=== PATIENT | female | born 1980 | race Caucasian/White ===

== ENCOUNTER 2018-09-24 15:08 | Emergency (ER) | payer BC ==
[2018-09-24 16:24] LABS: BASO % 0.5 % (0-6); EOS % 1.2 % (0-6); GRAN % 66.5 % (47-80); HEMOGLOBIN 14.4 gm/dl (11.6-16.0); MEAN CELL VOLUME 86.3 fl (81-97); MEAN CORPUSCULAR HEMOGLOBIN 28.9 pg (27-33); MEAN CORPUSCULAR HGB CONC 33.5 g/dl (32-36); MEAN PLATELET VOLUME 11.9 fl (7.4-10.4); MONO % 8.8 % (0-9); PLATELET COUNT 212 K/uL (130-400); RED BLOOD COUNT 4.98 M/uL (3.80-5.40); RED CELL DISTRIBUTION WIDTH 13.2 % (11.5-14.5); WHITE BLOOD COUNT W/O DIFF 6.6 K/uL (4.2-12.2)
[2018-09-24 16:33] LABS: BLOOD UREA NITROGEN 10 mg/dL (6-20); CREATININE 0.6 mg/dL (0.5-0.9); EST GLOMERULAR FILTRATION RATE > 60 mL/min
[2018-09-24 16:34] LABS: TOTAL PROTEIN 8.3 g/dL (6.6-8.7)
[2018-09-24 16:36] LABS: GLUCOSE,RANDOM 86 mg/dL (74-109)
[2018-09-24 16:39] LABS: ALB/GLOB RATIO 1.3 (1.1-1.8); ALBUMIN 4.7 g/dL (4.0-5.0); ALKALINE PHOSPHATASE 83 U/L (35-104); ALT/SGPT 14 U/L (<33); AST/SGOT 15 U/L (10.0-35.0)
[2018-09-24 17:07] LABS: URINE BILIRUBIN NEGATIVE (NEGATIVE); URINE BLOOD TRACE-I (NEGATIVE); URINE COLOR YELLOW; URINE GLUCOSE (UA) NEGATIVE (NEGATIVE); URINE KETONE NEGATIVE (NEGATIVE); URINE NITRITE NEGATIVE (NEGATIVE); URINE PROTEIN NEGATIVE (NEGATIVE); URINE UROBILINOGEN 0.2 E.U./dL (0.20 - 1.00)
[2018-09-24 17:11] LABS: URINE APPEARANCE SL CLOUDY; URINE LEUKOCYTE ESTERASE TRACE (NEGATIVE)
[2018-09-24 17:13] LABS: URINE MUCUS LIGHT
--- NOTE | 2018-09-24 17:34 | Emergency Department Record ---
History of Present Illness - General Chief Complaint: Abdominal Pain Stated Complaint: LT SIDE PAIN Time Seen by Provider: 09/24/18 16:09 Source: Patient Mode of Arrival: Ambulatory Limitations: No limitations - History of Present Illness Initial Comments: pt has had llq ap for 2 days w n/d/c. she went to [facility] to urgent care and was told that she has diverticulitis and was given abx. she had no labs and no ct. she was told to go to an emergency dept if she wanted affirmation MD Complaint: Abdominal pain Onset/Timin -: Days(s) Location: LLQ Radiation: Back Migration to: No migration Severity: Mild Severity scale (1-10): 3 Quality: Aching, Cramping Consistency: Constant Improves With: Nothing Worsens With: Eating Associated Symptoms: Constipation, Diarrhea, Nausea - Related Data LMP (females 10-50): Unknown Patient : No Home Medications Medication Instructions Recorded Confirmed Last Taken Sertraline HCl [Zoloft] 100 mg PO DAILY 09/24/18 09/24/18 Unknown Venlafaxine HCl [Venlafaxine HCl 75 mg PO DAILY 09/24/18 09/24/18 Unknown ER] Allergies Allergy/AdvReac Type Severity Reaction Status Date / Time No Known Drug Allergies Allergy Verified 09/24/18 15:27 Travel Screening - Travel/Exposure Within Last 30 Days Have you traveled within the last 30 days?: No Review of Systems Reviewed: No additional complaints except as noted below Constitutional: Reports: As per HPI. Denies: Chills, Fever, Malaise, Night sweats, Weakness, Weight change Eyes: Reports: As per HPI. Denies: Eye discharge, Eye pain, Photophobia, Vision change ENT: Reports: As per HPI. Denies: Congestion, Dental pain, Ear pain, Epistaxis , Hearing loss, Throat pain Respiratory: Reports: As per HPI. Denies: Cough, Dyspnea, Hemoptysis, Stridor, Wheezes Cardiovascular: Reports: As per HPI. Denies: Arrhythmia, Chest pain, Dyspnea on exertion, Edema, Murmurs, Orthopnea, Palpitations, Paroxysmal nocturnal dyspnea, Rheumatic Fever, Syncope Endocrine: Reports: As per HPI. Denies: Fatigue, Heat or cold intolerance, Polydipsia, Polyuria Gastrointestinal: Reports: As per HPI, Abdominal pain, Constipation, Diarrhea, Nausea. Denies: Hematemesis, Hematochezia, Melena, Vomiting Genitourinary: Reports: As per HPI. Denies: Abnormal menses, Discharge, Dyspareunia, Dysuria, Frequency, Hematuria, Incontinence, Retention, Urgency Musculoskeletal: Reports: As per HPI. Denies: Arthralgia, Back pain, Gout, Joint swelling, Myalgia, Neck pain Skin: Reports: As per HPI. Denies: Bruising, Change in color, Change in hair/ nails, Lesions, Pruritus, Rash Neurological: Reports: As per HPI. Denies: Abnormal gait, Confusion, Headache, Numbness, Paresthesias, Seizure, Tingling, Tremors, Vertigo, Weakness Psychiatric: Reports: As per HPI. Denies: Anxiety, Auditory hallucinations, Depression, Homicidal thoughts, Suicidal thoughts, Visual hallucinations Hematological/Lymphatic: Reports: As per HPI. Denies: Anemia, Blood Clots, Easy bleeding, Easy bruising, Swollen glands Past Medical History - SOCIAL HISTORY Smoking Status: Never smoker Alcohol Use: Rare Drug Use: None - RESPIRATORY Hx Respiratory Disorders: No - CARDIOVASCULAR Hx Cardio Disorders: No - NEURO Hx Neuro Disorders: No - GI Hx GI Disorders: No - Hx Genitourinary Disorders: No Comment:: endometriosis - ENDOCRINE Hx Endocrine Disorders: No - MUSCULOSKELETAL Hx Musculoskeletal Disorders: No - PSYCH Hx Psych Problems: Yes Hx Anxiety: Yes Hx Depression: Yes - HEMATOLOGY/ONCOLOGY Hx Hematology/Oncology Disorders: No Family Medical History Any Significant Family History?: No Physical Exam - General General Appearance: Alert, Oriented x3, Cooperative, Mild distress - Head Head exam: Normal inspection - Eye Eye exam: Normal appearance, PERRL, EOMI Pupils: Normal accommodation - ENT ENT exam: Normal exam, Mucous membranes moist, Normal external ear exam, Normal orophraynx Ear exam: Normal external inspection. negative: External canal tenderness Nasal Exam: Normal inspection. negative: Discharge, Sinus tenderness Mouth exam: Normal external inspection, Tongue normal Teeth exam: Normal inspection. negative: Dental caries Throat exam: Normal inspection. negative: Tonsillar erythema, Tonsillar exudate - Neck Neck exam: Normal inspection, Full ROM. negative: Tenderness - Respiratory Respiratory exam: Normal lung sounds bilaterally. negative: Respiratory distress - Cardiovascular Cardiovascular Exam: Regular rate, Normal rhythm, Normal heart sounds - GI/Abdominal GI/Abdominal exam: Soft, Normal bowel sounds, Tenderness (llq) - Rectal Rectal exam: Deferred - exam: Deferred - Extremities Extremities exam: Normal inspection, Full ROM, Normal capillary refill. negative: Tenderness - Back Back exam: Reports: Normal inspection, Full ROM. Denies: Muscle spasm, Rash noted, Tenderness - Neurological Neurological exam: Alert, CN II-XII intact, Normal gait, Oriented X3 - Psychiatric Psychiatric exam: Normal affect, Normal mood - Skin Skin exam: Dry, Intact, Normal color, Warm Course Vital Signs 09/24/18 09/24/18 15:20 17:06 Temperature 97.7 F Pulse Rate 78 Pulse Rate [ 73 Pulse Ox Probe] Respiratory 18 18 Rate Blood Pressure 125/88 Blood Pressure 117/80 [Left Arm] Pulse Ox 95 97 - Reevaluation(s) Reevaluation #1: 09/24/18 17:59 ct is neg Medical Decision Making - Lab Data Result diagrams: 09/24/18 15:30 09/24/18 15:30 Lab Results 09/24/18 09/24/18 09/24/18 Range/Units 15:30 15:30 17:00 WBC 6.6 (4.2-12.2) K/uL RBC 4.98 (3.80-5.40) M/uL Hgb 14.4 (11.6-16.0) gm/dl Hct 43.0 (35.0-47.0) % MCV 86.3 (81-97) fl MCH 28.9 (27-33) pg MCHC 33.5 (32-36) g/dl RDW 13.2 (11.5-14.5) % Plt Count 212 (130-400) K/uL MPV 11.9 H (7.4-10.4) fl Gran % 66.5 (47-80) % Lymphocytes % 23.0 (16-45) % Monocytes % 8.8 (0-9) % Eosinophils % 1.2 (0-6) % Basophils % 0.5 (0-6) % Sodium 137 (136-145) mmol/L Potassium 3.4 (3.4-4.5) mmol/L Chloride 98 (98-107) mmol/L Carbon Dioxide 25.0 (22-29) mmol/L Anion Gap 14.0 (7-16) BUN 10 (6-20) mg/dL Creatinine 0.6 (0.5-0.9) mg/dL Estimated GFR > 60 mL/min Random Glucose 86 (74-109) mg/dL Calcium 9.5 (8.6-10.0) mg/dL Total Bilirubin 0.30 (0.2-1.0) mg/dL AST 15 (10.0-35.0) U/L ALT 14 (<33) U/L Alkaline Phosphatase 83 (35-104) U/L Total Protein 8.3 (6.6-8.7) g/dL Albumin 4.7 (4.0-5.0) g/dL Globulin 3.6 (1.4-4.8) gm/dL Albumin/Globulin Ratio 1.3 (1.1-1.8) Urine Color Yellow Urine Appearance Sl cloudy Urine pH 5.5 (5.0-8.0) Ur Specific [place] 1.010 (1.002-1.030) Urine Protein Negative (NEGATIVE) Urine Glucose (UA) Negative (NEGATIVE) Urine Ketones Negative (NEGATIVE) Urine Blood Trace-i (NEGATIVE) Urine Nitrite Negative (NEGATIVE) Urine Bilirubin Negative (NEGATIVE) Urine Urobilinogen 0.2 (0.20 - 1.00) E.U./dL Ur Leukocyte Esterase Trace H (NEGATIVE) Urine RBC 3 - 6 (NONE SEEN) Urine WBC 3 - 5 (0-2/hpf) Ur Epithelial Cells 10 - 15 (FEW) Urine Mucus Light Disposition Disposition: Discharge Clinical Impression: LLQ abdominal pain Disposition: Home, Self-Care Condition: (1) Good Instructions: Abdominal Pain (ED) Additional Instructions: follow up with family doctor. return sooner if worse. if pain continues be rechecked Quality - Quality Measures Quality Measures: N/A - Blood Pressure Screening Does Patient Have Any of the Following: No Blood Pressure Classification: Pre-Hypertensive BP Reading Systolic Measurement: 125 Diastolic Measurement: 88 Screening for High Blood Pressure: < Pre-Hypertensive BP, F/U Documented > [ G8950] Pre-Hypertensive Follow-up Interventions: Follow-up with rescreen every year.
[2018-09-24] MEDS: KETOROLAC 30 MG/ML VIAL IVP ONE (18:18)
[2018-09-24] MEDS: 0.9 % SODIUM CHLORIDE 1,000 ML BAG IV ONE (18:19)
[2018-09-24] MEDS: ONDANSETRON HCL IV 4 MG/2 ML VIAL IV ONE (18:19)
== END 2018-09-24 18:23 | disposition home or self-care (01) ==
LOC: ER 15:08
DX: R10.32 Left lower quadrant pain (principal); R19.7 Diarrhea, unspecified; R11.0 Nausea
CPT/HCPCS: 74176; 80053; 81001; 85025; 99284; J7030

== ENCOUNTER 2018-10-27 15:01 | Emergency (ER) | payer BC ==
[2018-10-27] MEDS ORDERED: KETOROLAC 30 MG/ML VIAL IVP ONE (15:22)
[2018-10-27] MEDS ORDERED: 0.9 % SODIUM CHLORIDE 1,000 ML BAG IV ONE (15:22)
[2018-10-27] MEDS ORDERED: ONDANSETRON HCL IV 4 MG/2 ML VIAL IVP ONE ×2 (15:22→17:24)
--- NOTE | 2018-10-27 15:27 | Emergency Department Record ---
History of Present Illness - General Chief Complaint: Abdominal Pain Stated Complaint: LT SIDE PAIN Time Seen by Provider: 10/27/18 15:13 Source: Patient, Family Mode of Arrival: Ambulatory Limitations: No limitations - History of Present Illness Initial Comments: 37 yo female presents with left sided abdominal pain that has been coming and going for one month. She was seen in a [facility] and given the clinical diagnosis of diverticulitis. She was then seen in the ED and had a negative CT scan for diverticulitis. No history of GI disease in the past. She has some feeling constipation with hard firm stools but she does continue to have stools. She has tried Miralax with mild improvement. No fevers. No rash. No dysuria. MD Complaint: Abdominal pain Onset/Timin -: Month(s) (1) Location: LUQ Radiation: LUQ Migration to: LUQ Severity: Moderate Quality: Aching, Cramping Improves With: Nothing Worsens With: Nothing Associated Symptoms: Nausea - Related Data LMP (females 10-50): Unknown Home Medications Medication Instructions Recorded Confirmed Last Taken Multivitamin [Multiple Vitamins] 1 each PO DAILY 10/27/18 10/27/18 1 Day Ago ~10/26/18 Previous Rx's Medication Instructions Recorded Docusate Sodium [Colace] 100 mg PO BID #20 cap 10/27/18 Allergies Allergy/AdvReac Type Severity Reaction Status Date / Time No Known Drug Allergies Allergy Verified 10/27/18 15:20 Travel Screening - Travel/Exposure Within Last 30 Days Have you traveled within the last 30 days?: No - Travel/Exposure Within Last Year Have you traveled outside the [place] in the last year?: No - Additonal Travel Details Have you been exposed to anyone with a communicable illness?: No - Travel Symptoms Symptom Screening: None Review of Systems Constitutional: Denies: Chills, Fever, Malaise, Weakness Eyes: Denies: Eye discharge ENT: Denies: Congestion, Throat pain Respiratory: Denies: Cough, Dyspnea, Hemoptysis, Stridor, Wheezes Cardiovascular: Denies: Chest pain, Palpitations, Syncope Endocrine: Denies: Fatigue Gastrointestinal: Reports: Abdominal pain, Constipation, Nausea. Denies: Diarrhea, Hematemesis, Hematochezia, Vomiting Genitourinary: Denies: Dysuria, Urgency Musculoskeletal: Denies: Arthralgia, Back pain, Joint swelling, Myalgia Skin: Denies: Bruising, Change in color, Rash Neurological: Denies: Confusion, Numbness, Weakness Psychiatric: Denies: Anxiety Hematological/Lymphatic: Denies: Easy bleeding, Easy bruising Past Medical History - SOCIAL HISTORY Smoking Status: Never smoker Alcohol Use: None Drug Use: None - RESPIRATORY Hx Respiratory Disorders: No - CARDIOVASCULAR Hx Cardio Disorders: No - NEURO Hx Neuro Disorders: No - GI Hx GI Disorders: No - Hx Genitourinary Disorders: Yes Comment:: endometriosis - ENDOCRINE Hx Endocrine Disorders: No - MUSCULOSKELETAL Hx Musculoskeletal Disorders: No - PSYCH Hx Psych Problems: Yes Hx Anxiety: Yes Hx Depression: Yes - HEMATOLOGY/ONCOLOGY Hx Hematology/Oncology Disorders: No Family Medical History Any Significant Family History?: Yes Family Hx Comment (NOT TO BE USED IN PLACE OF ITEMS BELOW): none known Physical Exam - General General Appearance: Alert, Oriented x3, Cooperative, No acute distress Limitations: No limitations - Head Head exam: Atraumatic, Normal inspection - Eye Eye exam: Normal appearance. negative: Conjunctival injection, Scleral icterus - ENT ENT exam: Normal exam Ear exam: Normal external inspection Nasal Exam: Normal inspection Mouth exam: Normal external inspection - Neck Neck exam: Normal inspection - Respiratory Respiratory exam: Normal lung sounds bilaterally. negative: Respiratory distress - Cardiovascular Cardiovascular Exam: Regular rate, Normal rhythm, Normal heart sounds - GI/Abdominal GI/Abdominal exam: Soft, Normal bowel sounds, Tenderness (mild left lateral tenderness but very soft). negative: Diminished bowel sounds, Distended, Guarding, Hyperactive bowel sounds, Hypoactive bowel sounds, Rebound, Rigid - Rectal Rectal exam: Deferred - exam: Deferred - Extremities Extremities exam: Normal inspection. negative: Pedal edema, Tenderness - Back Back exam: Denies: CVA tenderness (R), CVA tenderness (L) - Neurological Neurological exam: Alert, Normal gait, Oriented X3 - Psychiatric Psychiatric exam: Normal affect, Normal mood - Skin Skin exam: Dry, Intact, Normal color, Warm Course Vital Signs 10/27/18 15:08 Temperature 97.7 F Pulse Rate 84 Respiratory 18 Rate Blood Pressure 119/86 Pulse Ox 95 - Reevaluation(s) Reevaluation #1: The labs were reviewed. No acute changes on the CBC or CMP. The prior CT was negative at that time for acute process. 10/27/18 16:15 10/27/18 17:51 The XR demonstrates moderate amount of stool throughout the colon 10/27/18 19:25 Given her clinical history of no signs of infection, constipation recently with first hard stools, the XR findings, I believe this is the most likely cause. I do not recommend another CT scan with her normal labs, no fever, no signs of infection. We discussed constipation at length. TSH was added as well. We discussed home care, close follow up with her doctor, GI referral if not improving, and reasons to return. Medical Decision Making - Lab Data Result diagrams: 10/27/18 15:30 10/27/18 15:30 Disposition Disposition: Discharge Clinical Impression: Constipation, Abdominal pain, left upper quadrant Disposition: Home, Self-Care Condition: (1) Good Instructions: Constipation (ED), Abdominal Pain (ED) Additional Instructions: Call your doctor for the next available follow up appointment Return to the ER for a recheck if worse, any new concerns or questions Take the prescriptions provided as directed Review this ER visit and the tests performed with your family doctor Prescriptions: Docusate Sodium [Colace] 100 mg PO BID #20 cap Forms: Patient Portal Access Time of Disposition: 17:53 Quality - Quality Measures Quality Measures: N/A - Blood Pressure Screening Does Patient Have Any of the Following: No Blood Pressure Classification: Pre-Hypertensive BP Reading Systolic Measurement: 119 Diastolic Measurement: 86 Screening for High Blood Pressure: < Pre-Hypertensive BP, F/U Documented > [ G8950] Pre-Hypertensive Follow-up Interventions: Referral to alternative/primary care provider.
[2018-10-27 15:45] LABS: BASO % 0.4 % (0-6); GRAN % 69.4 % (47-80); HEMATOCRIT 41.4 % (35.0-47.0); HEMOGLOBIN 13.8 gm/dl (11.6-16.0); LYMPH % 21.8 % (16-45); MEAN CELL VOLUME 87.7 fl (81-97); MEAN CORPUSCULAR HEMOGLOBIN 29.2 pg (27-33); MEAN CORPUSCULAR HGB CONC 33.3 g/dl (32-36); MEAN PLATELET VOLUME 11.7 fl (7.4-10.4); MONO % 7.4 % (0-9); PLATELET COUNT 231 K/uL (130-400); RED BLOOD COUNT 4.72 M/uL (3.80-5.40); RED CELL DISTRIBUTION WIDTH 13.3 % (11.5-14.5); WHITE BLOOD COUNT W/O DIFF 7.9 K/uL (4.2-12.2)
[2018-10-27 15:58] LABS: BLOOD UREA NITROGEN 13 mg/dL (6-20); CREATININE 1.1 mg/dL (0.5-0.9); EST GLOMERULAR FILTRATION RATE > 60 mL/min
[2018-10-27 15:59] LABS: LIPASE 22 U/L (13-60); TOTAL PROTEIN 7.7 g/dL (6.6-8.7)
[2018-10-27 16:01] LABS: GLUCOSE,RANDOM 97 mg/dL (74-109)
[2018-10-27 16:03] LABS: ALB/GLOB RATIO 1.6 (1.1-1.8); ALBUMIN 4.7 g/dL (4.0-5.0); ALKALINE PHOSPHATASE 77 U/L (35-104); ALT/SGPT 13 U/L (<33); AST/SGOT 14 U/L (10.0-35.0)
[2018-10-27 16:25] LABS: URINE APPEARANCE CLEAR; URINE BILIRUBIN NEGATIVE (NEGATIVE); URINE BLOOD NEGATIVE (NEGATIVE); URINE COLOR YELLOW; URINE GLUCOSE (UA) NEGATIVE (NEGATIVE); URINE KETONE NEGATIVE (NEGATIVE); URINE LEUKOCYTE ESTERASE TRACE (NEGATIVE); URINE NITRITE NEGATIVE (NEGATIVE); URINE PROTEIN NEGATIVE (NEGATIVE); URINE UROBILINOGEN 0.2 E.U./dL (0.20 - 1.00)
[2018-10-27 16:31] LABS: URINE RBC NONE SEEN (NONE SEEN); URINE WBC 0 - 2 (0-2/hpf)
[2018-10-27 16:32] LABS: HCG,QUALITATIVE URINE NEGATIVE (NEGATIVE)
[2018-10-27] MEDS ORDERED: MORPHINE SULFATE 10 MG/ML VIAL IVP ONE (17:24)
--- NOTE | 2018-10-30 10:28 | RADIOLOGY REPORT ---
EXAM: ABDOMEN, ONE VIEW HISTORY: LEFT SIDED ABDOMINAL PAIN FOR ONE MONTH. ENDOMETRIOSIS HISTORY. TECHNIQUE: Two AP supine views of the abdomen were obtained. Comparison: CT abdomen and pelvis without contrast dated 09/24/18. FINDINGS: Gas and stool are noted throughout a nondilated colon to the level of the rectum. Stool volume is moderate. No small bowel dilatation seen. No new mass, organomegaly, or suspicious calcification. An intrauterine contraceptive device is in place projecting at the level of the midline central pelvis. The osseous structures are intact. IMPRESSION: 1. NO BOWEL DILATATION, MASS NOR SUSPICIOUS CALCIFICATION. 2. MODERATE VOLUME OF STOOL THROUGHOUT THE COLON. 3. INTRAUTERINE CONTRACEPTIVE DEVICE IN PLACE. JOB NUMBER: [id number] MTDD
== END 2018-10-27 18:53 | disposition home or self-care (01) ==
LOC: ER 15:01
DX: K59.00 Constipation, unspecified (principal); R10.12 Left upper quadrant pain; R11.0 Nausea
CPT/HCPCS: 74018; 80053; 81001; 81025; 83690; 84443; 85025; 96374; 96375; 96376; 99283; 99284; J1885; J2270; J2405; J7030

== ENCOUNTER 2019-08-26 10:52 | Emergency (ER) | payer BC ==
[2019-08-26] MEDS ORDERED: 0.9 % SODIUM CHLORIDE 1,000 ML BAG IV ONE ×2 (11:46→13:10)
[2019-08-26] MEDS ORDERED: PROMETHAZINE HCL 12.5 MG in 0.9 % SODIUM CHLORIDE 100ML 100 ML IVPB ONE (11:47)
[2019-08-26 12:16] LABS: ABSOLUTE NEUTROPHIL COUNT 11.64; HEMATOCRIT 44.9 % (35.0-47.0); HEMOGLOBIN 14.5 gm/dl (11.6-16.0); MEAN CELL VOLUME 86.2 fl (81-97); MEAN CORPUSCULAR HEMOGLOBIN 27.8 pg (27-33); MEAN CORPUSCULAR HGB CONC 32.3 g/dl (32-36); MEAN PLATELET VOLUME 11.8 fl (7.4-10.4); PLATELET COUNT 202 K/uL (130-400); RED BLOOD COUNT 5.21 M/uL (3.80-5.40); RED CELL DISTRIBUTION WIDTH 13.5 % (11.5-14.5); WHITE BLOOD COUNT W/O DIFF 12.5 K/uL (4.2-12.2)
[2019-08-26 12:28] LABS: PLATELET ESTIMATE NORMAL (NORMAL)
[2019-08-26 12:32] LABS: BLOOD UREA NITROGEN 14 mg/dL (6-20); CREATININE 0.6 mg/dL (0.5-0.9); EST GLOMERULAR FILTRATION RATE > 60 mL/min
[2019-08-26 12:33] LABS: LIPASE 19 U/L (13-60); TOTAL PROTEIN 8.3 g/dL (6.6-8.7)
[2019-08-26 12:34] LABS: GLUCOSE,RANDOM 123 mg/dL (74-109)
[2019-08-26 12:37] LABS: ALB/GLOB RATIO 1.2 (1.1-1.8); ALBUMIN 4.5 g/dL (4.0-5.0); ALT/SGPT 16 U/L (<33); AST/SGOT 16 U/L (10.0-35.0)
[2019-08-26 12:38] LABS: ALKALINE PHOSPHATASE 80 U/L (35-104)
--- NOTE | 2019-08-26 13:14 | Emergency Department Record ---
History of Present Illness - General Chief complaint: Nausea, Vomiting, Diarrhea Stated complaint: VOMITING/DIARRHEA Time Seen by Provider: 08/26/19 11:10 Source: Patient Mode of Arrival: Ambulatory Limitations: No limitations - History of Present Illness Initial comments: pt has been vomiting and had diarrhea since last night. she had frozen chicken tenders for meal before she got sick complaint: Diarrhea, Nausea, Vomiting Onset/Timin -: Hour(s) Description of Vomiting: Watery Associated Abdominal Pain: Yes Location: Diffuse Quality: Cramping Consistency: Intermittent Improves with: Bowel movement Associated Symptoms: Nausea/vomiting - Related Data Previous Rx's Medication Instructions Recorded Promethazine HCl [Phenergan] 25 mg PO Q8HR #10 tablet 08/26/19 Allergies Allergy/AdvReac Type Severity Reaction Status Date / Time adhesive AdvReac RASH Verified 08/26/19 11:22 Travel/Exposure Screening - Travel/Exposure Within Last 30 Days Have you traveled within the last 30 days?: No - Travel/Exposure Within Last Year Have you traveled outside the [place] in the last year?: No - Additonal Travel/Exposure Details Have you been exposed to anyone with a communicable illness?: No - Travel Symptoms Symptom Screening: Fatigue, Diarrhea, Vomiting Review of Systems Constitutional: Reports: Weakness. Denies: Chills, Fever, Malaise, Night sweats Eyes: Reports: Vision change. Denies: Eye discharge, Eye pain, Photophobia ENT: Denies: Congestion, Dental pain, Ear pain, Epistaxis, Hearing loss, Throat pain Respiratory: Denies: Cough, Dyspnea, Hemoptysis, Stridor, Wheezes Cardiovascular: Denies: Arrhythmia, Chest pain Endocrine: Reports: Fatigue. Denies: Heat or cold intolerance, Polydipsia, Polyuria Gastrointestinal: Reports: Abdominal pain, Diarrhea, Nausea, Vomiting. Denies: Constipation, Hematochezia, Melena Musculoskeletal: Denies: Arthralgia, Back pain, Gout Skin: Denies: Bruising, Change in color, Change in hair/nails Neurological: Reports: Weakness. Denies: Abnormal gait, Confusion, Headache, Numbness, Paresthesias, Seizure, Tingling, Tremors Psychiatric: Denies: Anxiety, Auditory hallucinations, Visual hallucinations Hematological/Lymphatic: Denies: Anemia, Blood Clots, Easy bleeding, Easy bruising Past Medical History - SOCIAL HISTORY Smoking Status: Never smoker Alcohol Use: Rare Drug Use: None - RESPIRATORY Hx Respiratory Disorders: No - CARDIOVASCULAR Hx Cardio Disorders: No - NEURO Hx Neuro Disorders: No - GI Hx GI Disorders: No - Hx Genitourinary Disorders: Yes Comment:: endometriosis - ENDOCRINE Hx Endocrine Disorders: No - MUSCULOSKELETAL Hx Musculoskeletal Disorders: No - PSYCH Hx Psych Problems: Yes Hx Anxiety: Yes Hx Depression: Yes - HEMATOLOGY/ONCOLOGY Hx Hematology/Oncology Disorders: No Family Medical History Any Significant Family History?: No Family Hx Comment (NOT TO BE USED IN PLACE OF ITEMS BELOW): none known Physical Exam - General General Appearance: Alert, Oriented x3, Cooperative, Mild distress - Head Head exam: Normal inspection - Eye Eye exam: Normal appearance, PERRL, EOMI Pupils: Normal accommodation - ENT ENT exam: Normal exam, Mucous membranes dry, Normal external ear exam, Normal orophraynx Ear exam: Normal external inspection. negative: External canal tenderness Nasal Exam: Normal inspection. negative: Discharge, Sinus tenderness Mouth exam: Normal external inspection, Tongue normal Teeth exam: Normal inspection. negative: Dental caries Throat exam: Normal inspection. negative: Tonsillar erythema, Tonsillar exudate - Neck Neck exam: Normal inspection, Full ROM. negative: Tenderness - Respiratory Respiratory exam: Normal lung sounds bilaterally. negative: Respiratory distress - Cardiovascular Cardiovascular Exam: Normal rhythm, Normal heart sounds, Tachycardia - GI/Abdominal GI/Abdominal exam: Soft, Normal bowel sounds, Tenderness - Rectal Rectal exam: Deferred - exam: Deferred - Extremities Extremities exam: Normal inspection, Full ROM, Normal capillary refill. negative: Tenderness - Back Back exam: Reports: Normal inspection, Full ROM. Denies: Muscle spasm, Rash noted, Tenderness - Neurological Neurological exam: Alert, CN II-XII intact, Normal gait, Oriented X3, Reflexes normal - Psychiatric Psychiatric exam: Normal affect, Normal mood - Skin Skin exam: Dry, Intact, Normal color, Warm Course Vital Signs 08/26/19 11:12 Temperature 97.9 F Pulse Rate 103 H Respiratory 20 Rate Blood Pressure 124/75 Pulse Ox 99 - Reevaluation(s) Reevaluation #1: 08/26/19 14:08 pt feels much better Reevaluation #2: 08/26/19 14:09 able to keep down ice Medical Decision Making - Lab Data Result diagrams: 08/26/19 12:06 08/26/19 12:06 Lab Results 08/26/19 08/26/19 Range/Units 12:06 12:06 WBC 12.5 H (4.2-12.2) K/uL RBC 5.21 (3.80-5.40) M/uL Hgb 14.5 (11.6-16.0) gm/dl Hct 44.9 (35.0-47.0) % MCV 86.2 (81-97) fl MCH 27.8 (27-33) pg MCHC 32.3 (32-36) g/dl RDW 13.5 (11.5-14.5) % Plt Count 202 (130-400) K/uL MPV 11.8 H (7.4-10.4) fl Neutrophils % 88.0 H (47-80) % Band Neutrophils % 3.0 (0-5) % Eosinophils % Not Reportable Basophils % Not Reportable Absolute Neutrophils 11.64 Lymphocytes 8.0 L (16-45) % Monocytes 1.0 (0-9) % Platelet Estimate Normal (NORMAL) RBC Morphology Normal Sodium 138 (136-145) mmol/L Potassium 4.7 H (3.4-4.5) mmol/L Chloride 102 (98-107) mmol/L Carbon Dioxide 24.0 (22-29) mmol/L Anion Gap 12.0 (7-16) BUN 14 (6-20) mg/dL Creatinine 0.6 (0.5-0.9) mg/dL Estimated GFR > 60 mL/min Random Glucose 123 H (74-109) mg/dL Calcium 9.4 (8.6-10.0) mg/dL Total Bilirubin 0.40 (0.2-1.0) mg/dL AST 16 (10.0-35.0) U/L ALT 16 (<33) U/L Alkaline Phosphatase 80 (35-104) U/L Total Protein 8.3 (6.6-8.7) g/dL Albumin 4.5 (4.0-5.0) g/dL Globulin 3.8 (1.4-4.8) gm/dL Albumin/Globulin Ratio 1.2 (1.1-1.8) Lipase 19 (13-60) U/L Disposition Disposition: Discharge Clinical Impression: Vomiting and diarrhea, Dehydration Disposition: Home, Self-Care Condition: (1) Good Instructions: Acute Nausea and Vomiting (ED), Acute Diarrhea (ED), Dehydration (ED) Additional Instructions: follow up with family doctor. return sooner if worse. push fluids Prescriptions: Promethazine HCl [Phenergan] 25 mg PO Q8HR #10 tablet Forms: Patient Portal Access Quality - Quality Measures Quality Measures: N/A - Blood Pressure Screening Does Patient Have Any of the Following: No Blood Pressure Classification: Pre-Hypertensive BP Reading Systolic Measurement: 124 Diastolic Measurement: 75 Screening for High Blood Pressure: < Pre-Hypertensive BP, F/U Documented > [G8950] Pre-Hypertensive Follow-up Interventions: Follow-up with rescreen every year.
[2019-08-26 13:24] LABS: URINE APPEARANCE CLEAR; URINE BILIRUBIN NEGATIVE (NEGATIVE); URINE BLOOD NEGATIVE (NEGATIVE); URINE COLOR YELLOW; URINE GLUCOSE (UA) NEGATIVE (NEGATIVE); URINE KETONE NEGATIVE (NEGATIVE); URINE LEUKOCYTE ESTERASE NEGATIVE (NEGATIVE); URINE NITRITE NEGATIVE (NEGATIVE); URINE PROTEIN NEGATIVE (NEGATIVE); URINE UROBILINOGEN 0.2 E.U./dL (0.20 - 1.00)
[2019-08-26 13:27] LABS: HCG,QUALITATIVE URINE NEGATIVE (NEGATIVE)
== END 2019-08-26 14:37 | disposition home or self-care (01) ==
LOC: ER 10:52
DX: E86.0 Dehydration (principal); R11.2 Nausea with vomiting, unspecified; R19.7 Diarrhea, unspecified
CPT/HCPCS: 80053; 81003; 81025; 83690; 85027; 96361; 96365; 99284; J2550; J7030

== ENCOUNTER 2019-08-27 18:58 | Emergency (ER) | payer BC ==
[2019-08-27] MEDS ORDERED: 0.9 % SODIUM CHLORIDE 1,000 ML BAG IV ONE (19:17)
[2019-08-27] MEDS ORDERED: ONDANSETRON HCL IV 4 MG/2 ML VIAL IV ONE (19:17)
[2019-08-27] MEDS ORDERED: ACETAMINOPHEN 1,000 MG/100 ML BTL IVPB ONE (19:18)
[2019-08-27] MEDS ORDERED: LORAZEPAM 2 MG/ML VIAL IV ONE (19:18)
--- NOTE | 2019-08-27 19:21 | Emergency Department Record ---
History of Present Illness - General Chief Complaint: Abdominal Pain Stated Complaint: ABD/BACK PAIN Time Seen by Provider: 08/27/19 19:01 Source: Patient, Family Mode of Arrival: Ambulatory Limitations: No limitations - History of Present Illness Initial Comments: The patient is here due to worsening abdominal pain over the last 2 days. She has had 2 days of frequent nausea, vomiting and loose watery stools. Today the vomiting has resolved but she is still having the loose stools. The patient was in the ER yesterday and had fairly normal lab work. She was rehydrated and did feel better and was sent home. Today the pain has worsened. Her only abdominal surgery was a hernia repair when she was 7 years old. The patient also has a hx of anxiety and is feeling very anxious now. MD Complaint: Abdominal pain Onset/Timin -: Days(s) Location: Bilateral flank, Diffuse Migration to: Periumbilical Severity: Severe Severity scale (1-10): 10 Quality: Sharp, Stabbing Consistency: Getting worse Improves With: Nothing Worsens With: Nothing Associated Symptoms: Diarrhea - Related Data LMP (females 10-50): Unknown Previous Rx's Medication Instructions Recorded Promethazine HCl [Phenergan] 25 mg PO Q8HR #10 tablet 08/26/19 Dicyclomine HCl [Bentyl] 10 mg PO Q8H #15 cap 08/27/19 Allergies Allergy/AdvReac Type Severity Reaction Status Date / Time adhesive AdvReac RASH Verified 08/27/19 19:07 Travel/Exposure Screening - Travel/Exposure Within Last 30 Days Have you traveled within the last 30 days?: No - Travel/Exposure Within Last Year Have you traveled outside the [place] in the last year?: No - Additonal Travel/Exposure Details Have you been exposed to anyone with a communicable illness?: No - Travel Symptoms Symptom Screening: None Review of Systems Constitutional: Denies: Chills, Fever Eyes: Denies: Eye discharge ENT: Denies: Congestion Respiratory: Denies: Cough Cardiovascular: Denies: Arrhythmia Endocrine: Denies: Fatigue Gastrointestinal: Reports: Abdominal pain, Diarrhea, Nausea, Vomiting Genitourinary: Denies: Dysuria Musculoskeletal: Denies: Arthralgia Skin: Denies: Bruising Past Medical History - SOCIAL HISTORY Smoking Status: Never smoker Alcohol Use: Rare Drug Use: None - RESPIRATORY Hx Respiratory Disorders: No - CARDIOVASCULAR Hx Cardio Disorders: No - NEURO Hx Neuro Disorders: No - GI Hx GI Disorders: No - Hx Genitourinary Disorders: Yes Comment:: endometriosis - ENDOCRINE Hx Endocrine Disorders: No - MUSCULOSKELETAL Hx Musculoskeletal Disorders: No - PSYCH Hx Psych Problems: Yes Hx Anxiety: Yes Hx Depression: Yes - HEMATOLOGY/ONCOLOGY Hx Hematology/Oncology Disorders: No Family Medical History Any Significant Family History?: No Family Hx Comment (NOT TO BE USED IN PLACE OF ITEMS BELOW): none known Physical Exam - General General Appearance: Alert, Oriented x3, Cooperative, No acute distress - Head Head exam: Atraumatic, Normocephalic - Eye Eye exam: Normal appearance, PERRL - ENT Throat exam: Normal inspection. negative: Tonsillar erythema, Tonsillar exudate - Neck Neck exam: Normal inspection, Full ROM. negative: Tenderness - Respiratory Respiratory exam: Normal lung sounds bilaterally. negative: Respiratory distress - Cardiovascular Cardiovascular Exam: Regular rate, Normal rhythm, Normal heart sounds - GI/Abdominal GI/Abdominal exam: Soft, Normal bowel sounds, Tenderness (There is mild diffuse tenderness in all 4 quads.). negative: Guarding, Pulsatile mass, Rebound, Rigid - Extremities Extremities exam: Normal inspection, Full ROM, Normal capillary refill. negative: Tenderness - Neurological Neurological exam: Alert, Normal gait. negative: Abnormal gait, Motor sensory deficit - Psychiatric Psychiatric exam: negative: Anxious Course Vital Signs 08/27/19 19:04 Temperature 98.2 F Pulse Rate [ 91 H Pulse Ox Probe] Respiratory 20 Rate Blood Pressure 125/87 [Left Arm] Pulse Ox 96 - Reevaluation(s) Reevaluation #1: The patient is doing very well at this time and is keeping fluids down with no issues. She denies any pain, nausea, or discomfort. She actually was sleeping when I entered the room. On exam now her abdomen is very soft and nontender in all 4 quads. I did discuss the normal lab and CT report with the patient and the need for F/U with her PCP if not better. 08/27/19 20:46 Medical Decision Making - Data Complexity MDM Data: Labs Ordered and/or Reviewed, X-Ray Ordered and/or Reviewed - Lab Data Result diagrams: 08/27/19 19:30 08/27/19 19:30 - Radiology Data Radiology results: Report reviewed (CT: Neg for any acute issues.) Disposition Disposition: Discharge Clinical Impression: Vomiting and diarrhea Disposition: Home, Self-Care Condition: (2) Stable Instructions: Abdominal Pain (ED) Additional Instructions: Please rest tonight with no food or liquids and restart hydrating in the morning. Slowly advance your diet and use your home anti nausea medicines if needed. Use the Bentyl for cramping and see your family doctor later this week if not better. Return to the ER for any worsening pain, fever, or vomiting. Prescriptions: Dicyclomine HCl [Bentyl] 10 mg PO Q8H #15 cap Forms: Patient Portal Access Time of Disposition: 20:49 Quality - Quality Measures Quality Measures: N/A - Blood Pressure Screening View Details: Yes Does Patient Have Any of the Following: No Blood Pressure Classification: Normal BP Reading Systolic Measurement: 103 Diastolic Measurement: 71 Screening for High Blood Pressure: < Normal BP, F/U Not Required > [[id number]]
[2019-08-27 19:44] LABS: BASO % 0.2 % (0-6); GRAN % 68.5 % (47-80); HEMATOCRIT 40.2 % (35.0-47.0); HEMOGLOBIN 12.9 gm/dl (11.6-16.0); LYMPH % 17.2 % (16-45); MEAN CELL VOLUME 86.6 fl (81-97); MEAN CORPUSCULAR HEMOGLOBIN 27.8 pg (27-33); MEAN CORPUSCULAR HGB CONC 32.1 g/dl (32-36); MEAN PLATELET VOLUME 11.3 fl (7.4-10.4); MONO % 14.1 % (0-9); PLATELET COUNT 182 K/uL (130-400); RED BLOOD COUNT 4.64 M/uL (3.80-5.40); RED CELL DISTRIBUTION WIDTH 13.6 % (11.5-14.5); WHITE BLOOD COUNT W/O DIFF 5.8 K/uL (4.2-12.2)
[2019-08-27 19:52] LABS: BLOOD UREA NITROGEN 5 mg/dL (6-20); CREATININE 0.6 mg/dL (0.5-0.9); EST GLOMERULAR FILTRATION RATE > 60 mL/min
[2019-08-27 19:53] LABS: LIPASE 23 U/L (13-60); TOTAL PROTEIN 7.6 g/dL (6.6-8.7)
[2019-08-27 19:55] LABS: GLUCOSE,RANDOM 117 mg/dL (74-109)
[2019-08-27 19:57] LABS: ALT/SGPT 13 U/L (<33)
[2019-08-27 19:58] LABS: ALBUMIN 4.1 g/dL (4.0-5.0); ALKALINE PHOSPHATASE 66 U/L (35-104); AST/SGOT 14 U/L (10.0-35.0); BILIRUBIN,DIRECT < 0.2 mg/dL (0-0.3)
[2019-08-27] MEDS ORDERED: POTASSIUM CHLORIDE 20 MEQ TABLET PO ONE (20:03)
--- NOTE | 2019-08-27 20:39 | CT SCAN REPORT ---
EXAMINATION: CT Abdomen and Pelvis without IV Contrast EXAM DATE: 08/27/2019 8:20 PM TECHNIQUE: Standard protocol CT imaging of the abdomen and pelvis was performed without intravenous c ontrast. INDICATION: Flank pain COMPARISON: None ENCOUNTER: Not applicable CT ABDOMEN AND PELVIS FINDINGS: Lung Bases: Included extent of the lung bases are clear. Hepatobiliary: The liver has a normal size with a smooth surface. There is no biliary dilatation and the gallbladder is unremarkable. Pancreas: The pancreas is normal. Spleen: The spleen is not enlarged. Adrenals: The adrenal glands are normal. Kidneys, Ureters, & Bladder: Both kidneys have a normal size and morphology. There is no hydronephro sis. Both ureters have a normal course and caliber and the urinary bladder a normal morphology and un iform wall thickness. No ureteral or bladder calculi are identified. Gastrointestinal: The stomach and small bowel are normal with no obstruction or inflammation. The lar ge bowel is within normal limits. Reproductive Organs: There is an IUD is in good position Lymphatic System: There is no adenopathy within the abdomen or pelvis. Vasculature: Normal caliber abdominal aorta Peritoneum: No free fluid, free air, or inflammation Abdominal wall & Musculoskeletal: No suspicious bone lesions. Assessment of the solid organs, soft tissues, and vascular structures is overall limited on noncontra st imaging, IMPRESSION: No acute intra-abdominal process is demonstrated Dictated by: Jaime Perez MD on 08/27/2019 8:34 PM. .
== END 2019-08-27 20:55 | disposition home or self-care (01) ==
LOC: ER 18:58
DX: R11.2 Nausea with vomiting, unspecified (principal); R19.7 Diarrhea, unspecified; R10.33 Periumbilical pain
CPT/HCPCS: 74176; 80048; 80076; 83690; 84703; 85025; 96374; 96375; 99284; J2405; J7030